=== PATIENT | female | born 1995 | race Caucasian/White ===

== ENCOUNTER 2023-10-26 12:10 | Emergency (ER) | payer OTHER ==
[~2023-10-26] VITALS: Ht 162.6 cm; Wt 59.0 kg
[2023-10-26 12:29] VITALS: BP 129/87; PULSE 82; RESP 18; TEMP 98.7; O2SAT 100
[2023-10-26] MEDS ORDERED: ACET-10509 PO (12:46)
[2023-10-26] MEDS ORDERED: BENZ-256 MM (12:46)
[2023-10-26 13:14] VITALS: BP 129/87; PULSE 82; RESP 18; TEMP 98.7; O2SAT 100
== END 2023-10-26 13:14 | disposition home or self-care (01) ==
LOC: MED 12:10
DX: K12.0 Recurrent oral aphthae (principal); Z79.1 Long term (current) use of non-steroidal anti-inflammatories (NSAID); Z79.899 Other long term (current) drug therapy
CPT/HCPCS: 99282